=== PATIENT | male | born 1940 | race Caucasian/White ===

== ENCOUNTER 2017-10-06 15:02 | Emergency (ER) | payer MEDICARE ==
[~2017-10-06] VITALS: Ht 175.3 cm; Wt 85.0 kg
[~2017-10-06 15:02] MED LIST: NORepinephrine 1 mg/ml inj IV ONE
[2017-10-06 15:46] LABS: BASOPHILS % (AUTO) 0 % (0-1); EOSINOPHILS % (AUTO) 0.3 % (0-6); HEMATOCRIT 43.4 % (42.0-52.0); HEMOGLOBIN 14.8 g/dl (14.0-17.9); LYMPHOCYTES # (AUTO) 0.3 X10'3 (1.1-4.8); LYMPHOCYTES % (AUTO) 2.5 % (21-51); MEAN CORPUSCULAR HEMOGLOBIN 32.3 PG (27.0-31.0); MEAN CORPUSCULAR HGB CONC 34.1 % (33.0-36.5); MEAN CORPUSCULAR VOLUME 94.6 FL (78-98); MEAN PLATELET VOLUME 8.8 FL (7.4-10.4); MONOCYTES # (AUTO) 0.5 X10'3 (0-0.9); MONOCYTES % (AUTO) 4.2 % (2-12); NEUTROPHILS # (AUTO) 12.2 X10'3 (1.8-7.7); PLATELET COUNT 51 X10'3 (140-440); RED BLOOD COUNT 4.59 X10'6 (4.70-6.10); RED CELL DISTRIBUTION WIDTH 14.8 % (11.5-14.5); WHITE BLOOD COUNT 13.1 X10'3 (4.5-11.0)
[2017-10-06 15:51] LABS: INR 1.2 INR; PARTIAL THROMBOPLASTIN TIME 40 SECONDS (22-32); PROTHROMBIN TIME 12.7 SECONDS (9.0-12.0)
[2017-10-06 15:59] LABS: ALANINE AMINOTRANSFERASE 144 U/L (12-78); ALBUMIN 2.8 G/DL (3.4-5.0); ALBUMIN/GLOBULIN RATIO 0.7 (1.1-1.5); ALKALINE PHOSPHATASE 94 IU/L (46-116); ANION GAP 12 (8-16); ASPARTATE AMINO TRANSFERASE 188 U/L (10-37); BILIRUBIN,TOTAL 1.5 MG/DL (0.1-1.0); BLOOD UREA NITROGEN 44 MG/DL (7-18); BUN/CREATININE RATIO 23.2 (5.4-32.0); CALCIUM 8.4 MG/DL (8.5-10.1); CHLORIDE 98 MMOL/L (99-107); GLUCOSE 116 MG/DL (70-104); POTASSIUM 3.9 MMOL/L (3.5-5.1); SODIUM 136 MMOL/L (135-145); TOTAL CARBON DIOXIDE 26.2 MMOL/L (24-32); TOTAL PROTEIN 6.6 G/DL (6.4-8.2); eGFR 34 ML/MIN
[2017-10-06 16:03] LABS: TROPONIN I 0.36 NG/ML (0.0-0.05)
[2017-10-06] MEDS ORDERED: CARV6.252 PO (16:09)
[2017-10-06] MEDS ORDERED: FURO-150 PO (16:09)
[2017-10-06] MEDS ORDERED: HYDR-3965 PO (16:09)
[2017-10-06] MEDS ORDERED: DIGO125T78 PO (16:09)
[2017-10-06] MEDS ORDERED: FLO0.4C PO (16:09)
[2017-10-06] MEDS ORDERED: ATOR20TA66 PO (16:09)
[2017-10-06] MEDS ORDERED: SPIR25TA3 PO (16:09)
[2017-10-06] MEDS ORDERED: ASPI-611 PO (16:09)
[2017-10-06] MEDS ORDERED: SACU1TAB4 PO (16:09)
[2017-10-06] MEDS ORDERED: AMIO200T5 PO (16:09)
[2017-10-06] MEDS ORDERED: CLOP75TA35 PO (16:09)
[2017-10-06] MEDS ORDERED: normal saline 1000ml 1,000 ML IV ONE ×2 (16:25)
[2017-10-06] MEDS ORDERED: acetaminophen 1,000mg/100ml IV 100 ML IV STA (16:48)
[2017-10-06] MEDS ORDERED: aspirin 325mg tablet PO ONE (17:25)
[2017-10-06 20:59] LABS: CREATINE KINASE 1803 U/L (39-308)
[2017-10-06] MEDS ORDERED: NORepinephrine 8mg/ 250ml NS 250 ML IV PRN (21:03)
[2017-10-06 22:12] VITALS: BP 121/80
[2017-10-08 17:11] LABS: ANTINUCLEAR ANTIBODIES Negative (Negative)
[2017-10-09 05:24] LABS: A/G RATIO 0.9 (0.7-1.7); ALBUMIN 2.4 g/dL (2.9-4.4); BETA GLOBULIN 0.9 g/dL (0.7-1.3); GAMMA GLOBULIN 0.8 g/dL (0.4-1.8); GLOBULIN, TOTAL 2.6 g/dL (2.2-3.9); M-SPIKE Not Observed g/dL (Not Observed)
== END 2017-10-07 00:41 | disposition short-term general hospital (02) ==
LOC: ER 15:02
DX: R53.1 Weakness (principal); I21.4 Non-ST elevation (NSTEMI) myocardial infarction; I50.23 Acute on chronic systolic (congestive) heart failure; N17.9 Acute kidney failure, unspecified; D72.829 Elevated white blood cell count, unspecified; I48.91 Unspecified atrial fibrillation; I11.0 Hypertensive heart disease with heart failure; E78.00 Pure hypercholesterolemia, unspecified; F17.200 Nicotine dependence, unspecified, uncomplicated; G89.29 Other chronic pain; Z60.2 Problems related to living alone; Z79.82 Long term (current) use of aspirin; Z79.899 Other long term (current) drug therapy
CPT/HCPCS: 36415; 36556; 70450; 71045; 71270; 74176; 80053; 80162; 82550; 82607; 82746; 83880; 84155; 84165; 84484; 85025; 85610; 85730; 86038; 93005; 96361; 96374; 99291; 99292; J0131; J7030; 99285